=== PATIENT | female | born 1965 ===

== ENCOUNTER 2016-12-14 11:16 | Emergency (ER) | payer OTHER ==
[2016-12-14 11:31] VITALS: BP 135/91; PULSE 82; RESP 18; TEMP 98.5; O2SAT 99
--- NOTE | 2016-12-14 12:52 | ED PDOC ---
Lower Extremity Pain/Injury Time Seen by Provider: 12/14/16 11:21 Chief Complaint (Nursing): Lower Extremity Problem/Injury Chief Complaint (Provider): left foot pain History Per: Document Processor (Mara Axel) History/Exam Limitations: language barrier (kinyarwanda ) Onset/Duration Of Symptoms: Days (x 1 month ) Current Symptoms Are (Timing): Still Present Additional Complaint(s): Cindy Harris is a 51 year old female. with no previous medical history, who presents to the ED with complaints of atraumatic left foot pain which has been ongoing for the past month. Patient denies any numbness, tingling or swelling of the foot. Patient states to taking naproxen to alleviate symptoms with minimal relief. Of note, patient states to undergoing surgery on that foot "a long time ago" for plantar fasciitis. PMD: Zachary Bernal MD Past Medical History Reviewed: Historical Data, Nursing Documentation, Vital Signs Vital Signs: Last Vital Signs Temp 98.5 F 12/14/16 11:28 Pulse 82 12/14/16 11:28 Resp 18 12/14/16 11:28 BP 135/91 H 12/14/16 11:28 Pulse Ox 99 12/14/16 11:28 - Medical History PMH: No Chronic Diseases - Surgical History Other surgeries: left foot plantar fasciitis - Family History Family History: States: Unknown Family Hx - Home Medications Home Medications: Ambulatory Orders Medication Instructions Recorded traMADol [Ultram] 50 mg PO Q6H PRN #15 tab 12/14/16 - Allergies Allergies/Adverse Reactions: Allergies Allergy/AdvReac Type Severity Reaction Status Date / Time No Known Allergies Allergy Verified 12/14/16 11:28 Review of Systems ROS Statement: Except As Marked, All Systems Reviewed And Found Negative Musculoskeletal: Positive for: Foot Pain (left foot) Neurological: Negative for: Numbness, Other (tingling ) Physical Exam - Reviewed Nursing Documentation Reviewed: Yes Vital Signs Reviewed: Yes - Physical Exam Appears: Positive for: Well, Non-toxic, No Acute Distress Extremity: Positive for: Normal ROM, Tenderness (generalized left foot tenderness no pinpoint tenderness ) Neurologic/Psych: Positive for: Alert, Oriented - ECG O2 Sat by Pulse Oximetry: 99 (RA) Pulse Ox Interpretation: Normal Medical Decision Making Medical Decision Making: Initial Impression: left foot pain Initial Plan: * ultram * x-ray left foot * reevaluation Pt reports feeling better on re-evaluation Foot x-ray: No acute finding. Scribe Attestation: Documented by Allyson Tian, acting as a scribe for Tejal Saucedo PA-C. Provider Scribe Attestation: All medical record entries made by the Scribe were at my direction and personally dictated by me. I have reviewed the chart and agree that the record accurately reflects my personal performance of the history, physical exam, medical decision making, and the department course for this patient. I have also personally directed, reviewed, and agree with the discharge instructions and disposition. Disposition - Clinical Impression Clinical Impression: Foot pain - Patient ED Disposition Is Patient to be Admitted: No Counseled Patient/Family Regarding: Studies Performed, Diagnosis, Need For Followup, Rx Given - Disposition Referrals: Podiatry Clinic [Outside] Disposition: Routine/Home Disposition Time: 13:39 Condition: GOOD Prescriptions: traMADol [Ultram] 50 mg PO Q6H PRN #15 tab PRN Reason: Pain Instructions: Arthralgia (ED)
--- NOTE | 2016-12-14 14:02 | RAD ---
PROCEDURE: Left Foot Radiographs. HISTORY: mid foot pain, 1 month, no trauma COMPARISON: None available. FINDINGS: BONES: No acute displaced fracture. Small calcaneal enthesophyte. JOINTS: No dislocation. SOFT TISSUES: Unremarkable. No evidence of radiopaque foreign body. OTHER FINDINGS: None. IMPRESSION: No acute displaced fracture, dislocation, or significant joint effusion identified. If symptoms persist, or if there is continued clinical concern, x-ray follow-up in 7-10 days should be considered.
== END 2016-12-14 13:45 | disposition home or self-care (01) ==
LOC: H.ER 11:16
DX: M79.672 Pain in left foot (principal)